=== PATIENT | male | born 1960 | race Caucasian/White ===

== ENCOUNTER 2020-11-29 15:04 | Emergency (ER) | payer OTHER ==
[2020-11-29 15:10] VITALS: RESP 18
[2020-11-29] MEDS ORDERED: FLUORESCEIN STRIPS 1 MG STRIP LEFT EYE ONE (15:19)
[2020-11-29] MEDS ORDERED: PROPARACAINE 0.5% OPHTH DROPS 15 ML BTL LEFT EYE STA (15:19)
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
[2020-11-29 16:11] VITALS: BP 154/99; PULSE 77; TEMP 98.2
== END 2020-11-29 16:14 | disposition home or self-care (01) ==
LOC: EC 15:04
DX: H53.8 Other visual disturbances (principal); Z87.891 Personal history of nicotine dependence; V43.52XA Car driver injured in collision with other type car in traffic accident, initial encounter; Y92.410 Unspecified street and highway as the place of occurrence of the external cause
CPT/HCPCS: 70450; 99284

== ENCOUNTER 2025-05-16 06:34 | Day surgery (SDC) | payer BC ==
[2025-05-16 06:52] VITALS: TEMP 97
[2025-05-16] MEDS: IV FLUID CONTINUATION 1,000 ML IV ONE (06:55)
[2025-05-16 07:05] LABS: Glucose,Whole Blood 114 mg/dL (70-110)
[2025-05-16] MEDS: LACTATED RINGERS 1,000 ML IV SCH (07:06)
[2025-05-16] MEDS ORDERED: PROPOFOL 10 MG/ML 20 ML VIAL IV ONE (07:28)
[2025-05-16] MEDS ORDERED: LIDOCAINE 1% INJ 10MG/ML (20 ML MDV) ONE (07:28)
--- NOTE | 2025-05-16 07:53 | P.GSHP ---
History of Present Illness H&P Date: 05/16/25 CHIEF COMPLAINT: Dysphagia and colon screen HISTORY OF PRESENT ILLNESS: The patient is a 64-year-old male who presents with dysphagia, gastroesophageal reflux disease and need for colon screen. Upper and lower endoscopy were offered for further evaluation and management. PAST MEDICAL HISTORY: Please see list. PAST SURGICAL HISTORY: Please see list. MEDICATIONS: Please see list. ALLERGIES: Please see list. SOCIAL HISTORY: No illicit drug use FAMILY HISTORY: No reports of Crohn disease or ulcerative colitis. REVIEW OF ORGAN SYSTEMS: CONSTITUTIONAL: No reports of fevers or chills. GI: Denies any blood in stools or constipation. PHYSICAL EXAM: VITAL SIGNS: Stable GENERAL: Well-developed pleasant in no acute distress. HEENT: No scleral icterus. Extraocular movements grossly intact. Moist buccal mucosa. NECK: Supple without lymphadenopathy. CHEST: Unlabored respirations. Equal bilateral excursions. CARDIOVASCULAR: Regular rate and rhythm. Distal 2+ pulses. ABDOMEN: Soft, nondistended. MUSCULOSKELETAL: No clubbing, cyanosis, or edema. ASSESSMENT: 1. Dysphagia and gastroesophageal reflux disease 2. Colon screen. PLAN: 1. Recommend proceeding with an upper and lower endoscopy Past Medical History Past Medical History: Diabetes Mellitus, GERD/Reflux, Hypertension Additional Past Medical History / Comment(s): occasionally has dysphagia, "pre- diabetic", hx. colon polyps History of Any Multi-Drug Resistant Organisms: None Reported Past Surgical History: Tonsillectomy Additional Past Surgical History / Comment(s): colonoscopy Past Anesthesia/Blood Transfusion Reactions: No Reported Reaction Smoking Status: Former smoker, Vaper Medications and Allergies Home Medications Medication Instructions Recorded Confirmed Type Cholecalciferol [Vitamin D3 (25 25 mcg PO DAILY 05/14/25 05/16/25 History Mcg = 1000 Iu)] Multivitamins, Thera [Multivitamin 1 tab PO DAILY 05/14/25 05/16/25 History (formulary)] lisinopriL [Zestril] 10 mg PO HS 05/14/25 05/16/25 History metFORMIN HCL ER [Glucophage XR] 500 mg PO HS 05/14/25 05/16/25 History Allergies Allergy/AdvReac Type Severity Reaction Status Date / Time No Known Allergies Allergy Verified 05/16/25 06:53 Surgical - Exam Vital Signs Temp Pulse Resp BP Pulse Ox 97.0 F L 90 14 114/81 98 05/16/25 06:50 05/16/25 06:50 05/16/25 06:50 05/16/25 06:50 05/16/25 06:50 Results - Labs Abnormal Lab Results - Last 24 Hours (Table) 05/16/25 Range/Units 07:03 POC Glucose (mg/dL) 114 H (70-110) mg/dL
--- NOTE | 2025-05-16 07:58 | P.PCN ---
Date of Procedure: 05/16/25 Description of Procedure: PREOPERATIVE DIAGNOSIS: Dysphagia. Gastroesophageal reflux disease. POSTOPERATIVE DIAGNOSIS: Esophageal stenosis Presbyesophagus Gastritis Acute gastric ulcers Duodenitis Duodenal ulcer OPERATION: Esophagogastroduodenoscopy with rigid dilator over the guidewire 54 Fr with dil ation Esophagogastroduodenoscopy with cold forceps biopsies stomach/antrum, esophagus, duodenum SURGEON: Bobbi Saab MD ANESTHESIA: MAC. INDICATIONS: The patient is a 64-year-old male who presents with dysphagia including reflux disease. Benefits and risks of the procedure were described. Informed consent was obtained. DESCRIPTION: The patient was brought into the endoscopy suite and laid in the left lateral decubitus position. After a timeout was confirmed, the procedure was initiated. An Olympus gastroscope was passed into the posterior oropharynx where an upper esophageal stenosis was identified. The scope was passed down to the distal esophagus. To address the lower esophageal stenosis, rigid dilator over guidewire was selected. Next using an [place] rigid dilator, a guidewire was placed through the gastroscope. Next the scope was withdrawn. A 54-Malian rigid [place] dilator was passed carefully along the posterior oropharynx to 45 cm and left in place for 2-3 minutes stretch. The dilator was withdrawn including the guidewire. The scope was reentered along the posterior oropharynx with no findings of full- thickness tear of the upper esophageal sphincter. Additional findings below. Within the stomach, severe acute gastritis with gastric ulcerations were identified along the body of the stomach with cold forceps biopsies obtained. The lower esophageal valve was evaluated with Hill grade 2 lower esophageal valve. LA grade B erosive esophagitis was identified. No full-thickness injury was encountered. The GI tract was desufflated. The patient tolerated the procedure well. FINDINGS: Upper esophageal stenosis dilated 54-[place] rigid dilator Diaphragmatic hiatus at 40 cm from the incisors Squamocolumnar junction 40 cm from the incisors. Gastritis along the gastric body and fundus cold forceps biopsies obtained Acute gastric ulcerations identified in antrum, biopsies obtained Duodenum with duodenitis and duodenal ulcer, second portion, biopsies obtained, 6 mm without acute bleeding LA grade B erosive esophagitis, biopsies obtained Hill grade 2 lower esophageal valve. Tertiary contractions consistent with presbyesophagus RECOMMENDATIONS: Omeprazole 40 mg daily Repeat upper endoscopy 4-6 weeks
--- NOTE | 2025-05-16 08:09 | P.PCN ---
Date of Procedure: 05/16/25 Description of Procedure: PREOPERATIVE DIAGNOSIS: Personal history colon polyps Colonoscopy screening. POSTOPERATIVE DIAGNOSIS: Colonoscopy screening. Diverticulosis, scattered. OPERATION: Colonoscopy to the cecum, ileocecal valve and appendiceal orifice. SURGEON: Bobbi Saab MD. ANESTHESIA: MAC. INDICATIONS: The patient is a 64-year-old female who presents for colonoscopy screening. Benefits and risks were described and informed consent was obtained. DESCRIPTION OF PROCEDURE: The patient had undergone Suprep. The patient had been brought into the operating room and laid in the left lateral decubitus position. After adequate intravenous sedation, the rectum was examined with 2% lidocaine jelly. External hemorrhoids were encountered. The rectal tone was within normal limits. No lesions were palpated in the rectal vault. An Olympus colonoscope was advanced until the cecum, ileocecal valve and appendiceal orifice were clearly viewed. The prep was good. Scattered diverticulosis including the cecum was encountered. No colonic polyps were found. No evidence of focal colitis was found. Retroflexion of the scope demonstrated grade 4 internal hemorrhoids without active bleeding or inflammation. The colon was desufflated. The patient had tolerated the procedure well. Withdrawal time was over 6 minutes. FINDINGS: Aronchick preparation quality scale (1-5) Internal hemorrhoids, grade 4 External prolapsed hemorrhoids, grade 4 No arteriovenous malformations. No adenomatous polyps. No focal colitis. Diffuse sigmoid diverticulosis RECOMMENDATIONS: Lower endoscopy in 5 [id number] Plan - Discharge Summary Discharge Rx Participant: No New Discharge Prescriptions: New Omeprazole [PriLOSEC] 40 mg PO DAILY #14 cap Continue metFORMIN HCL ER [Glucophage XR] 500 mg PO HS Cholecalciferol [Vitamin D3 (25 Mcg = 1000 Iu)] 25 mcg PO DAILY Multivitamins, Thera [Multivitamin (formulary)] 1 tab PO DAILY lisinopriL [Zestril] 10 mg PO HS Discharge Medication List Cholecalciferol [Vitamin D3 (25 Mcg = 1000 Iu)] 25 mcg PO DAILY 05/14/25 [History] Multivitamins, Thera [Multivitamin (formulary)] 1 tab PO DAILY 05/14/25 [History] lisinopriL [Zestril] 10 mg PO HS 05/14/25 [History] metFORMIN HCL ER [Glucophage XR] 500 mg PO HS 05/14/25 [History] Omeprazole [PriLOSEC] 40 mg PO DAILY #14 cap 05/16/25 [Rx] Follow up Appointment(s)/Referral(s): Bobbi Saab MD [STAFF PHYSICIAN] - 06/12/25 3:00 pm Patient Instructions/Handouts: Diverticulosis Diet (GEN), Diverticulosis (GEN), Gastritis (ED), Peptic Ulcer (DC), Esophageal Dilation (DC) Activity/Diet/Wound Care/Special Instructions: Soft food diet for 2 days. Repeat colonoscopy 5 years, 2030 Discharge Disposition: HOME SELF-CARE
[2025-05-16 08:11] VITALS: RESP 16
[2025-05-16 08:46] VITALS: BP 110/68; PULSE 83
== END 2025-05-16 09:39 | disposition home or self-care (01) ==
LOC: ORWHC2ENDO 06:34
PROVIDERS: ATTEND Surgery Plastic and Reconstructive Surgery
DX: Z12.11 Encounter for screening for malignant neoplasm of colon (principal); K29.50 Unspecified chronic gastritis without bleeding; K25.3 Acute gastric ulcer without hemorrhage or perforation; K29.80 Duodenitis without bleeding; K26.9 Duodenal ulcer, unspecified as acute or chronic, without hemorrhage or perforation; K57.30 Diverticulosis of large intestine without perforation or abscess without bleeding; K21.00 Gastro-esophageal reflux disease with esophagitis, without bleeding; K64.3 Fourth degree hemorrhoids; E11.9 Type 2 diabetes mellitus without complications; I10 Essential (primary) hypertension; Z86.0100 Personal history of colon polyps, unspecified; Z90.89 Acquired absence of other organs; Z87.891 Personal history of nicotine dependence; Z79.84 Long term (current) use of oral hypoglycemic drugs; Z79.899 Other long term (current) drug therapy
CPT/HCPCS: 88305; 88312; 45378; 43239; 43248; J2003; J2704